=== PATIENT | male | born 1975 | race African-American/Black ===

== ENCOUNTER 2016-04-21 11:24 | Emergency (ER) | payer OTHER ==
[2016-04-21 11:42] VITALS: RESP 18
--- NOTE | 2016-04-21 12:17 | ED ---
General Adult HPI - General Chief complaint: Extremity Injury, Upper Stated complaint: rt shoulder injury - home Time Seen by Provider: 04/21/16 11:45 Source: patient, RN notes reviewed Mode of arrival: ambulatory Limitations: no limitations - History of Present Illness Initial comments: Patient 41-year-old male who presents emergency room today with chief complaint of injury to the right shoulder times one day. Does not that yesterday he was helping a friend move an air conditioner. Denies any significant injury at that time states he felt that he pulled a little bit. States when he got home to do some work himself he was having a difficult time lifting the right shoulder without any pain. States tried to go to work today was having increased pain. States he was advised by his boss that he needed to have a work note be cleared to go back to work. Patient does admit the pain is worse with any abduction of the right shoulder or extension. Denies any other complaints or associated symptoms. Patient denies any recent fever, chills, shortness of breath, chest pain, back pain, abdominal pain, nausea or vomiting, numbness or tingling, dysuria or hematuria, constipation or diarrhea, headaches or visual changes, or any other complaints. - Related Data Home Medications Medication Instructions Recorded Confirmed Chlorthalidone [Hygroton] 25 mg PO DAILY 04/21/16 04/21/16 Ergocalciferol (Vitamin D2) 50,000 unit PO TU 04/21/16 04/21/16 [Vitamin D2] Ibuprofen [Motrin] 200 mg PO Q6HR PRN 04/21/16 04/21/16 QUEtiapine XR [SEROquel XR] 150 mg PO HS 04/21/16 04/21/16 Allergies Allergy/AdvReac Type Severity Reaction Status Date / Time No Known Allergies Allergy Verified 04/21/16 11:51 Review of Systems ROS Statement: Those systems with pertinent positive or pertinent negative responses have been documented in the HPI. ROS Other: All systems not noted in ROS Statement are negative. Past Medical History Past Medical History: Hypertension History of Any Multi-Drug Resistant Organisms: None Reported Past Surgical History: No Surgical Hx Reported Past Psychological History: Anxiety Smoking Status: Current every day smoker Past Alcohol Use History: Daily Past Drug Use History: None Reported General Exam - General Exam Comments Initial Comments: General: The patient is awake and alert, in no distress, and does not appear acutely ill. Neck: The neck is supple, there is no tenderness or JVD. Cardiovascular: There is a regular rate and rhythm. No murmur, rub or gallop is appreciated. Respiratory: Lungs are clear to auscultation, respirations are non-labored, breath sounds are equal. No wheezes, stridor, rales, or rhonchi. Musculoskeletal: Normal appearance of the right shoulder. Only tucked against the side. Sensations intact with pulses equal bilaterally 2+. Strength is 5/5 in all other areas. 4/5 in right shoulder against abduction due to pain. Neurological: A&O x 3. CN II-XII intact, There are no obvious motor or sensory deficits. Coordination appears grossly intact. Speech is normal. Skin: Skin is warm and dry and no rashes or lesions are noted. Psychiatric: Normal mood and affect. Limitations: no limitations Course Vital Signs 04/21/16 11:38 Temperature 98.5 F Pulse Rate 99 Respiratory 18 Rate Blood Pressure 131/77 O2 Sat by Pulse 96 Oximetry Medical Decision Making - Medical Decision Making Patient's x-ray reviewed shows no acute abnormalities. Results were discussed with the patient. He does admit that ibuprofen seems to be kicking in helping does have some range of motion with his right arm starting to feel little bit better. He is advised continue with anti-inflammatories advised to follow-up the family doctor or orthopedics if symptoms persist for further evaluation of the right shoulder. Advised to do no heavy lifting. Advised return for any other concerns. Disposition Clinical Impression: Shoulder strain Disposition: HOME SELF-CARE Condition: Good Instructions: Rotator Cuff Injury (ED) Additional Instructions: Please use medication as discussed. Please follow family doctor or orthopedics if symptoms persist over the next week. Please return to emergency room if the symptoms increase or worsen or for any other concerns. Referrals: Basilia Richmond MD [Primary Care Provider] - 1-2 days Viktor Ray DO [Doctor of Osteopathic Medicine] - 1-2 days Time of Disposition: 13:28
--- NOTE | 2016-04-21 12:43 | XR ---
EXAMINATION TYPE: XR shoulder complete RT DATE OF EXAM: 04/21/2016 12:35 PM CLINICAL HISTORY: Lifting injury yesterday with pain. TECHNIQUE: Three views of the right shoulder are obtained. COMPARISON: None. FINDINGS: There is no acute fracture/dislocation evident in the right shoulder. The acromioclavicul ar and glenohumeral joint spaces appear within normal limits. The visualized ribs are intact and unr emarkable. IMPRESSION: There is no acute fracture or dislocation in the right shoulder.
[2016-04-21 13:37] VITALS: BP 132/65; PULSE 71; TEMP 98.3
== END 2016-04-21 13:37 | disposition home or self-care (01) ==
LOC: EC 11:24
DX: S46.911A Strain of unspecified muscle, fascia and tendon at shoulder and upper arm level, right arm, initial encounter (principal); X58.XXXA Exposure to other specified factors, initial encounter; F17.200 Nicotine dependence, unspecified, uncomplicated; I10 Essential (primary) hypertension; Z79.899 Other long term (current) drug therapy
CPT/HCPCS: 99283

== ENCOUNTER 2019-10-30 18:56 | Emergency (ER) | payer OTHER ==
[2019-10-30 19:07] VITALS: BP 143/93; PULSE 87; RESP 18; TEMP 98.6
[2019-10-30] MEDS: LIDOCAINE 1% INJ 10MG/ML (20 ML MDV) SQ ONE ×2 (19:24→19:26)
[2019-10-30] MEDS ORDERED: CEPHALEXIN 500MG STARTER PACK 4 CAP BTL PO STA (19:50)
[2019-10-30] MEDS ORDERED: SULFAMETH-TMP DS STARTER PACK 2 TAB BTL PO STA (19:50)
--- NOTE | 2019-10-30 19:51 | ED ---
General Adult HPI - General Chief complaint: Skin/Abscess/Foreign Body Stated complaint: ingrown hair on leg Time Seen by Provider: 10/30/19 19:07 Source: patient, RN notes reviewed Mode of arrival: ambulatory Limitations: no limitations - History of Present Illness Initial comments: 44-year-old male with a past medical history of hypertension presents to the emergency room for a chief complaint of "hair bump." Patient reports he has had a red bump in his groin for the past 2 days. States this happens from time to time but usually goes away. Patient denies fevers. Denies any edema in the scrotum or testicles. Patient states it is tender. Patient did take a warm bath yesterday which softened it but has not had any active draining. Patient has no other complaints at this time including shortness of breath, chest pain, abdominal pain, nausea or vomiting, headache, or visual changes. - Related Data Home Medications Medication Instructions Recorded Confirmed Chlorthalidone [Hygroton] 25 mg PO DAILY 04/21/16 02/11/17 Atorvastatin [Lipitor] 40 mg PO DAILY 02/11/17 02/11/17 Ibuprofen [Motrin] 800 mg PO Q6H PRN 02/11/17 02/11/17 QUEtiapine FUMARATE [SEROquel] 300 mg PO HS 02/11/17 02/11/17 Previous Rx's Medication Instructions Recorded Hydrocortisone [Anusol-Hc] 1 applic RECTAL TID #1 gm 02/11/17 Cephalexin [Keflex] 500 mg PO Q6HR 10 Days #40 cap 10/30/19 Sulfamethox-Tmp 800-160Mg [Bactrim 1 tab PO Q12HR #20 tab 10/30/19 DS 800-160 mg] Allergies Allergy/AdvReac Type Severity Reaction Status Date / Time No Known Allergies Allergy Verified 10/30/19 19:06 Review of Systems ROS Statement: Those systems with pertinent positive or pertinent negative responses have been documented in the HPI. ROS Other: All systems not noted in ROS Statement are negative. Past Medical History Past Medical History: Hypertension History of Any Multi-Drug Resistant Organisms: None Reported Past Surgical History: No Surgical Hx Reported Past Psychological History: Anxiety Past Alcohol Use History: Daily Past Drug Use History: None Reported General Exam Limitations: no limitations General appearance: alert, in no apparent distress Head exam: Present: atraumatic, normocephalic, normal inspection Eye exam: Present: normal appearance, PERRL, EOMI. Absent: scleral icterus, conjunctival injection, periorbital swelling ENT exam: Present: normal exam, mucous membranes moist Neck exam: Present: normal inspection, full ROM. Absent: tenderness, meningismus, lymphadenopathy Respiratory exam: Present: normal lung sounds bilaterally. Absent: respiratory distress, wheezes, rales, rhonchi, stridor Cardiovascular Exam: Present: regular rate, normal rhythm, normal heart sounds. Absent: systolic murmur, diastolic murmur, rubs, gallop, clicks GI/Abdominal exam: Present: soft, normal bowel sounds. Absent: distended, tenderness, guarding, rebound, rigid exam: Absent: scrotal swelling Extremities exam: Present: other (Patient has abscess noted to the left inner upper thigh. Does not involve the perineum. Abscess is about 3 cm x 3 cm in size.) Course Vital Signs 10/30/19 19:04 Temperature 98.6 F Pulse Rate 87 Respiratory 18 Rate Blood Pressure 143/93 O2 Sat by Pulse 98 Oximetry Procedures - Incision & Drainage Consent Obtained: verbal consent Indication: Abscess Site: lower extremity Size (cm): 3 Anesthetic Used: lidocaine 1% Amount (mLs): 3 I&D Cleaning Method: Chloroprep Sterile Field Used?: Yes Scalpel Used: #11 I&D Drainage Obtained: Pus, Blood Patient Tolerated Procedure: well, no complications Medical Decision Making - Medical Decision Making HPI physical exam as documented. Incision and drainage performed with purulent material expelled. Patient started on antibiotics. Discussed return parameters including any redness spreading to the scrotum. Discussed returning for fevers or any other worsening symptoms. Patient will follow-up with his doctor. He is aware that symptoms should start to improve within 48 hours and if not he needs to be reevaluated. Disposition Clinical Impression: Abscess Disposition: HOME SELF-CARE Condition: Good Instructions (If sedation given, give patient instructions): Abscess (ED), Warm Compress or Soak (ED) Additional Instructions: Please apply warm compresses. Take antibiotics as directed. If symptoms are not improving within 48 hours he needs to return to the emergency room. You having worsening symptoms such as fevers or infection is spreading to scrotum return immediately to the emergency room. Prescriptions: Sulfamethox-Tmp 800-160Mg [Bactrim DS 800-160 mg] 1 tab PO Q12HR #20 tab Cephalexin [Keflex] 500 mg PO Q6HR 10 Days #40 cap Is patient prescribed a controlled substance at d/c from ED?: No Referrals: Dung Torres MD [Primary Care Provider] - 1-2 days Time of Disposition: 19:48
== END 2019-10-30 20:01 | disposition home or self-care (01) ==
LOC: EC 18:56
DX: L02.416 Cutaneous abscess of left lower limb (principal); I10 Essential (primary) hypertension; F41.9 Anxiety disorder, unspecified; Z79.899 Other long term (current) drug therapy
CPT/HCPCS: 99283; 10060; J2001

== ENCOUNTER 2021-08-19 12:21 | Emergency (ER) | payer OTHER ==
[2021-08-19 13:03] VITALS: BP 123/77; PULSE 83; RESP 20; TEMP 98.3
--- NOTE | 2021-08-19 13:39 | XR ---
EXAMINATION TYPE: XR chest 2V DATE OF EXAM: 08/19/2021 COMPARISON: NONE TECHNIQUE: PA and lateral views submitted. HISTORY: Pain FINDINGS: The lungs are clear and there is no pneumothorax, pleural effusion, or focal pneumonia. Heart size normal. Hyperinflation. Hypertrophic and degenerative changes spine. Biapical pleural thickening. No overt failure. IMPRESSION: 1. No acute process.
[2021-08-19] MEDS ORDERED: LIDOCAINE 5% PATCH TOPICAL STA (17:52)
[2021-08-19] MEDS ORDERED: IBUPROFEN 800 MG TAB PO STA (17:52)
--- NOTE | 2021-08-19 18:08 | ED ---
General Adult HPI - General Chief complaint: Chest Pain Stated complaint: R side pain Time Seen by Provider: 08/19/21 17:41 Source: patient, RN notes reviewed, old records reviewed Mode of arrival: ambulatory Limitations: no limitations - History of Present Illness Initial comments: Patient is a 46-year-old male with past medical history remarkable for hypertension presents emergency Department complaining of acute onset of right- sided rib pain. Patient is complaining of pain between his right to most inferior ribs. Started yesterday when he bent over to spit into the sink after brushing his teeth. States it was sudden onset at this site. States it is provoked by moving or twisting his trunk or torso. Improves when resting. Once reevaluated. Denies any shortness of breath, chest pain otherwise. Denies any nausea, vomiting, abdominal pain, urinary complaints. No other acute complaints at this time. His pinpoint pain. Does not radiate. Feel sharp in nature. - Related Data Home Medications Medication Instructions Recorded Confirmed Chlorthalidone [Hygroton] 25 mg PO DAILY 04/21/16 02/11/17 Atorvastatin [Lipitor] 40 mg PO DAILY 02/11/17 02/11/17 Ibuprofen [Motrin] 800 mg PO Q6H PRN 02/11/17 02/11/17 QUEtiapine FUMARATE [SEROquel] 300 mg PO HS 02/11/17 02/11/17 Previous Rx's Medication Instructions Recorded Hydrocortisone [Anusol-Hc] 1 applic RECTAL TID #1 gm 02/11/17 Cephalexin [Keflex] 500 mg PO Q6HR 10 Days #40 cap 10/30/19 Sulfamethox-Tmp 800-160Mg [Bactrim 1 tab PO Q12HR #20 tab 10/30/19 DS 800-160 mg] Lidocaine 5% Patch [Lidoderm 5% 1 patch TOPICAL DAILY PRN 7 Days 08/19/21 Patch] #7 patch methocarbamoL [Robaxin] 500 mg PO BID PRN 7 Days #14 tab 08/19/21 Allergies Allergy/AdvReac Type Severity Reaction Status Date / Time No Known Allergies Allergy Verified 08/19/21 13:03 Review of Systems ROS Statement: Those systems with pertinent positive or pertinent negative responses have been documented in the HPI. Review of Systems: CONST: Denies fever EYES: Denies blurry vision ENT: Denies nasal congestion C/V: Denies Chest pain RESP: Denies shortness of breath GI: Denies abdominal pain : Denies dysuria SKIN: Denies rash. MSK: Endorses right-sided rib pain. NEURO: Denies headache ROS Other: All systems not noted in ROS Statement are negative. Past Medical History Past Medical History: Hypertension History of Any Multi-Drug Resistant Organisms: None Reported Past Surgical History: No Surgical Hx Reported Past Psychological History: Anxiety Smoking Status: Current every day smoker Past Alcohol Use History: Daily Past Drug Use History: None Reported General Exam - General Exam Comments Initial Comments: General: Appears in no acute distress. HEAD: Normal with no signs of head trauma. EYES: PERRLA, EOMI, conjunctiva normal, no discharge. ENT: Hearing grossly intact, normal oropharynx. RESPIRATORY: Clear breath sounds bilaterally. No wheezes, rales, or rhonchi. No increased work of breathing. No hypoxia. C/V: Regular rate and rhythm. S1 and S2 auscultated, no edema, peripheral pulses 2+ and intact throughout ABD: Abd is soft, nontender, nondistended EXT: Normal range of motion, no obvious deformity. Patient has right-sided midaxillary line 11th and 12th tenderness to palpation is pinpoint, especially the intermuscular space. No midline spinal tenderness to palpation. SKIN: No rashes or lesions observed on exposed skin. NEURO: Alert and oriented 4. No focal sensory or strength deficits. Limitations: no limitations Course Vital Signs 08/19/21 13:01 Temperature 98.3 F Pulse Rate 83 Respiratory 20 Rate Blood Pressure 123/77 O2 Sat by Pulse 96 Oximetry Medical Decision Making - Medical Decision Making Based on the patient's presentation and physical exam, I do believe he is likely experiencing a muscle strain. Chest x-ray was obtained on the patient waiting in triage which showed no signs of acute cardiopulmonary process. I discussed with him I would like to obtain a screening EKG due to his obesity, age. He was in agreement with this plan. I do not believe that further laboratory studies or imaging are required at this time. He will be given a lidocaine patches as well as ibuprofen for analgesia. Recommended [id number] analgesia as well as lidocaine patches and muscle relaxers at home which he will receive a prescription for. He was in agreement this plan. We'll provide him with a work note as well. EKG shows no signs of ischemia. I will provide the patient with a prescription for Robaxin, lidocaine patch. I instructed the patient to follow up with their PCP in the next 3 days. I explained that the patient should return to the emergency department if they experience any worsening symptoms. Strict return precautions were discussed with the patient. The patient expressed understanding of these instructions. I answered all questions that the patient had. The patient was discharged home in good condition with their prescriptions and follow up information. - EKG Data -: EKG Interpreted by Me EKG Comments: 12-lead Electrocardiogram Interpretation Note EKG was reviewed and interpreted by myself. 12-lead ECG performed at 1805 is interpreted by me as revealing normal sinus rhythm at a rate of 77 beats per minute. Left axis deviation. VA interval is 167 ms, QRS duration is 105 ms, QTc is 421 ms.. There were no ST or T wave abnormalities to suggest myocardial ischemia or injury. R wave progression across the precordium was satisfactory. By my interpretation this EKG is non-diagnostic for acute ischemia. Disposition Clinical Impression: Muscle strain Disposition: HOME SELF-CARE Condition: Good Instructions (If sedation given, give patient instructions): Muscle Strain (ED) Prescriptions: Lidocaine 5% Patch [Lidoderm 5% Patch] 1 patch TOPICAL DAILY PRN 7 Days #7 patch PRN Reason: Pain methocarbamoL [Robaxin] 500 mg PO BID PRN 7 Days #14 tab PRN Reason: Pain Is patient prescribed a controlled substance at d/c from ED?: No Referrals: Dung Torres MD [Primary Care Provider] - 1-2 days Time of Disposition: 18:25
== END 2021-08-19 18:35 | disposition home or self-care (01) ==
LOC: EC 12:21
DX: S29.011A Strain of muscle and tendon of front wall of thorax, initial encounter (principal); I10 Essential (primary) hypertension; F17.200 Nicotine dependence, unspecified, uncomplicated; Z79.899 Other long term (current) drug therapy; X58.XXXA Exposure to other specified factors, initial encounter
CPT/HCPCS: 71046; 93005; 99285

== ENCOUNTER 2021-12-02 00:07 | Emergency (ER) | payer OTHER ==
[2021-12-02 00:18] VITALS: RESP 15; TEMP 98.2
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
[2021-12-02] MEDS ORDERED: HYDROcodone/APAP 5-325MG 1 EACH TAB PO STA (01:16)
[2021-12-02] MEDS ORDERED: KETOROLAC 15 MG/ML 1 ML VIAL IM STA (01:16)
--- NOTE | 2021-12-02 01:25 | XR ---
EXAMINATION TYPE: XR ankle complete LT DATE OF EXAM: 12/01/2021 COMPARISON: 05/01/2015 HISTORY: Pain TECHNIQUE: 3 views FINDINGS: There is oblique fracture distal fibula. There is transverse fracture of the medial malleol us. Ankle mortise is slightly widened. No dislocation. The talus is intact. There is mild soft tissue swelling around the ankle. IMPRESSION: There is bimalleolar fracture of the ankle. There is approximate 4 mm lateral displacemen t of the talus.
[2021-12-02 03:31] VITALS: BP 132/81; PULSE 71
== END 2021-12-02 03:56 | disposition home or self-care (01) ==
LOC: EC 00:07
DX: S82.842A Displaced bimalleolar fracture of left lower leg, initial encounter for closed fracture (principal); F17.200 Nicotine dependence, unspecified, uncomplicated; I10 Essential (primary) hypertension; Z79.899 Other long term (current) drug therapy; X50.1XXA Overexertion from prolonged static or awkward postures, initial encounter; Y92.89 Other specified places as the place of occurrence of the external cause
CPT/HCPCS: 73610; 99284; 27810; 96372; J1885

== ENCOUNTER 2021-12-10 11:10 | Day surgery (SDC) | payer OTHER ==
[2021-12-09 14:38] VITALS: BMI 39.5
[~2021-12-10 11:10] MED LIST: DEXAMETHASONE SOD PHOSPHATE 4 MG/ML 1 ML VIAL IV ONE; LACTATED RINGERS 1,000 ML IV SCH; MIDAZOLAM 2 MG/2 ML VIAL IV PRN; ONDANSETRON 4 MG/2 ML VIAL IVP ONE; SCOPOLAMINE 1 MG/72 HR PATCH TRANSDERM ONE
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
[2021-12-10] MEDS ORDERED: MIDAZOLAM 2 MG/2 ML VIAL IVP ONE (11:39)
[2021-12-10] MEDS ORDERED: fentaNYL (PF) 50 MCG/ML 2 ML AMP IVP ONE (11:40)
[2021-12-10] MEDS ORDERED: SODIUM CHLORIDE 0.9% (PF) 10 ML VIAL ONE (11:50)
[2021-12-10] MEDS ORDERED: SUCCINYLCHOLINE CHLORIDE 200 MG/10 ML VIAL IV ONE (11:50)
[2021-12-10] MEDS ORDERED: GLYCOPYRROLATE 0.2 MG/ML 2 ML VIAL ONE (11:50)
[2021-12-10] MEDS ORDERED: NEOSTIGMINE 1 MG/ML 10 ML VIAL ONE (11:50)
[2021-12-10] MEDS ORDERED: ROPIVACAINE 5 MG/ML 30 ML VIAL ONE (11:50)
[2021-12-10] MEDS ORDERED: LIDOCAINE 2% INJ 20 MG/ML (2 ML VIAL) ONE (11:50)
[2021-12-10] MEDS ORDERED: PROPOFOL 10 MG/ML 20 ML VIAL IV ONE (11:50)
[2021-12-10] MEDS ORDERED: fentaNYL (PF) 50 MCG/ML 2 ML AMP ONE (11:50)
[2021-12-10] MEDS ORDERED: ROCURONIUM 10 MG/ML (5 ML VIAL) IV ONE (11:50)
[2021-12-10 11:53] LABS: HCT 47.8 % (39.0-53.0); HGB 16.5 gm/dL (13.0-17.5); MCHC 34.4 g/dL (31.0-37.0); Mean Platelet Volume 7.3; Platelet Count 277 k/uL (150-450); RBC 5.32 m/uL (4.30-5.90); WBC 11.2 k/uL (3.8-10.6)
[2021-12-10 12:16] LABS: African American GFR (CKD) >90 (>60 ml/min/1.73 sqM); Anion Gap 13 mmol/L; Blood Urea Nitrogen 12 mg/dL (9-20); Calcium 9.9 mg/dL (8.4-10.2); Carbon Dioxide 25 mmol/L (22-30); Chloride 103 mmol/L (98-107); Glucose 115 mg/dL (74-99); Non-African American GFR(CKD) 84 (>60 ml/min/1.73 sqM); Potassium 3.9 mmol/L (3.5-5.1); Sodium 141 mmol/L (137-145)
[2021-12-10] MEDS ORDERED: LACTATED RINGERS 1,000 ML IV ONE (13:08)
[2021-12-10 13:37] VITALS: TEMP 97.8
[2021-12-10] MEDS: HYDROmorphone 0.5 MG/0.5 ML SYRINGE IVP PRN ×2 (13:57→14:17)
--- NOTE | 2021-12-10 14:00 | FL ---
Fluoroscopy HISTORY: Pain 30 seconds fluoroscopy time supplied to the referring clinician. 5 intraoperative C-arm images docum ent the procedure. See dictated report from orthopedic surgery.
[2021-12-10 15:51] VITALS: BP 117/64; PULSE 89; RESP 18
--- NOTE | 2021-12-10 17:08 | P.ANPRN ---
Procedure Note - Anesthesia - Nerve Block Performed Left Popliteal Single Time Out Performed: Yes (1138) Date of Procedure: 12/10/21 Procedure Start Time: 11:39 Procedure Stop Time: 11:44 Location of Patient: PreOp Indication: Acute Post-Operative Pain, Requested by Surgeon Specifically requested for management of pain by DrParis: Boris Motley Sedation Type: Sedate with meaningful contact maintained Preparation: Sterile Prep Position: Supine Catheter: None Needle Types: Pajunk Needle Gauge: 21 Ultrasound used to visualize needle placement: Yes Ultrasound used to observe medication spread: Yes Injectate: 0.5% Ropivacaine (see comment for volume) (15cc + 10 cc nacl pf) Blood Aspirated: No Pain Paresthesia on Injection Noted: No Resistance on Injection: Normal Image Stored and Saved: Yes Events: Uneventful and Well Tolerated
--- NOTE | 2021-12-10 17:09 | P.ANPRN ---
Procedure Note - Anesthesia - Nerve Block Performed Left Adductor Canal Single Time Out Performed: Yes (1138) Date of Procedure: 12/10/21 Procedure Start Time: 11:45 Procedure Stop Time: 11:48 Location of Patient: PreOp Indication: Acute Post-Operative Pain, Requested by Surgeon Specifically requested for management of pain by DrParis: Boris Motley Sedation Type: Sedate with meaningful contact maintained Preparation: Sterile Prep Position: Supine Catheter: None Needle Types: Pajunk Needle Gauge: 21 Ultrasound used to visualize needle placement: Yes Ultrasound used to observe medication spread: Yes Injectate: 0.5% Ropivacaine (see comment for volume) (15cc +10cc nacl pf) Blood Aspirated: No Pain Paresthesia on Injection Noted: No Resistance on Injection: Normal Image Stored and Saved: Yes Events: Uneventful and Well Tolerated
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
== END 2021-12-10 16:08 | disposition home or self-care (01) ==
LOC: OR 11:10
PROVIDERS: ATTEND Orthopaedic Surgery
DX: S82.842A Displaced bimalleolar fracture of left lower leg, initial encounter for closed fracture (principal); G89.18 Other acute postprocedural pain; I10 Essential (primary) hypertension; G47.30 Sleep apnea, unspecified; F17.210 Nicotine dependence, cigarettes, uncomplicated; X50.1XXA Overexertion from prolonged static or awkward postures, initial encounter; Z79.899 Other long term (current) drug therapy
CPT/HCPCS: 64447; 64445; 76942; 80048; 85027; 73610; 27814; C1713; J2250; J0330; J1100; J2710; J0690; J2405; J3010; J2795; J2704; J1170; J2001

== ENCOUNTER 2022-01-18 18:04 | Emergency (ER) | payer OTHER ==
[2022-01-18 18:13] VITALS: BP 138/88; PULSE 87; RESP 18; TEMP 98.1
[2022-01-18] MEDS ORDERED: MORPHINE SULFATE 4 MG/ML SYRINGE IM STA (18:54)
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
== END 2022-01-18 20:14 | disposition home or self-care (01) ==
LOC: EC 18:04
DX: T81.31XA Disruption of external operation (surgical) wound, not elsewhere classified, initial encounter (principal); I10 Essential (primary) hypertension; G47.30 Sleep apnea, unspecified; F17.200 Nicotine dependence, unspecified, uncomplicated
CPT/HCPCS: 87070; 87205; 87077; 87186; 99283; 96372; J2270

== ENCOUNTER 2022-01-24 14:45 | Emergency (ER) | payer OTHER ==
[2022-01-24 14:51] VITALS: BP 127/69; PULSE 98; RESP 16; TEMP 98.7
--- NOTE | 2022-01-24 17:33 | ED ---
Skin/Abscess/FB HPI - General Chief complaint: Skin/Abscess/Foreign Body Stated complaint: Leg Infection Time Seen by Provider: 01/24/22 16:08 Source: patient Mode of arrival: ambulatory Limitations: no limitations - History of Present Illness Initial comments: This 46-year-old male presents with complaint of possible infection to his left ankle. He states that he fractured his ankle in early November. He had surgery about a week later. He was placed in a cast and states that this seemed to rub up against his ankle and he developed an infection. He was seen in the emergency department about a week ago and was placed on Bactrim. The culture apparently came back in the ER called him 3 days ago. This culture came back positive for pseudomonas. He is placed on Levaquin which she's been taking over the last 3 days. They told him to come to the emergency department on Monday but he states that he cannot as he had a court case when he came today instead. He denies any fevers or chills. He states that the pain has somewhat improved since being on the antibiotic. He still states that he has significant pain at night and is strongly requesting additional G[place] as he ran out. He has an appointment with wound care tomorrow as well as his orthopedic doctor the next day. No other complaints or modifying factors. - Related Data Home Medications Medication Instructions Recorded Confirmed Chlorthalidone [Hygroton] 25 mg PO DAILY 04/21/16 01/24/22 Atorvastatin [Lipitor] 40 mg PO DAILY 01/24/22 01/24/22 Ergocalciferol [Vitamin D2 (1250 1,250 mcg PO MO 01/24/22 01/24/22 Mcg = 39163 Iu)] Levofloxacin [Levaquin] 750 mg PO DAILY 01/24/22 01/24/22 Sildenafil [Revatio] 20 mg PO DAILY PRN 01/24/22 01/24/22 amLODIPine [Norvasc] 10 mg PO DAILY 01/24/22 01/24/22 Previous Rx's Medication Instructions Recorded HYDROcodone/APAP 5-325MG [[place] 1 tab PO Q6HR PRN 3 Days #12 tab 01/24/22 5-325] Allergies Allergy/AdvReac Type Severity Reaction Status Date / Time No Known Allergies Allergy Verified 01/24/22 17:49 Review of Systems ROS Statement: Those systems with pertinent positive or pertinent negative responses have been documented in the HPI. ROS Other: All systems not noted in ROS Statement are negative. Past Medical History Past Medical History: Hypertension, Sleep Apnea/CPAP/BIPAP Additional Past Medical History / Comment(s): No CPAP use. History of Any Multi-Drug Resistant Organisms: None Reported Past Surgical History: Orthopedic Surgery Additional Past Surgical History / Comment(s): left ankle repair Past Anesthesia/Blood Transfusion Reactions: No Reported Reaction Past Psychological History: No Psychological Hx Reported Smoking Status: Current every day smoker Past Alcohol Use History: Occasional Past Drug Use History: None Reported - Past Family History Mother Family Medical History: No Reported History General Exam - General Exam Comments Initial Comments: GENERAL: The patient is well nourished and well hydrated. VITAL SIGNS: Heart rate, blood pressure, respiratory rate reviewed as recorded in nurse's notes. EYES: Pupils are round and reactive. Extraocular movements are intact. No conjunctival / lid redness or swelling. ENT: No external evidence of injury, swelling, or ecchymosis. Airway is patent. Throat is clear. NECK: Nontender. No swelling or evidence of injury. No subcutaneous emphysema. Trachea is midline. No thyroid mass. HEART: Regular rate and rhythm. Good peripheral pulses. LUNGS/CHEST: Breath sounds clear and equal bilaterally. No rales, rhonchi, or wheezes. No ecchymosis, subcutaneous emphysema, or tenderness. ABDOMEN: Abdomen soft without tenderness. No palpable masses or organomegaly. No peritoneal signs. No abdominal wall swelling or ecchymosis. EXTREMITIES: No extremity tenderness. Normal muscle tone and function. No thoracolumbar tenderness. NEUROLOGIC: Sensation is grossly intact. Cranial nerve exam reveals face is symmetrical, tongue is midline, speech is clear. SKIN: No abrasions or ecchymosis is noted. No induration or masses noted. There is a small wound approximately 2 cm on the lateral aspect of the left ankle. This has some slight greenish drainage. There isassociated erythema in the surrounding borders. There is no fluctuance or evidence of abscess. There is no significant tenderness. PSYCHIATRIC: Alert and oriented. Appropriate behavior and judgment. Limitations: no limitations Course Vital Signs 01/24/22 14:46 Temperature 98.7 F Pulse Rate 98 Respiratory 16 Rate Blood Pressure 127/69 O2 Sat by Pulse 98 Oximetry Medical Decision Making - Medical Decision Making The patient was seen and examined. Cultures were reviewed from this past week and do show that Pseudomonas route. This is susceptible to multiple medications including fluoroquinolones. It appears as though he is currently on Levaquin which should work fine. Case is discussed with orthopedic PA and they are agreeable with current disposition. He is to continue with the Levaquin, follow up with wound care tomorrow and follow-up with orthopedics on Monday. Pain medications are prescribed for short course of Garrison. Return parameters are discussed. Patient is agreeable with this plan and leaves in no distress. Disposition Clinical Impression: Postoperative cellulitis of surgical wound Disposition: HOME SELF-CARE Condition: Good Instructions (If sedation given, give patient instructions): Chronic Wound Care (ED) Additional Instructions: Please follow up with wound care tomorrow as scheduled. Please continue with your current antibiotics. Prescriptions: HYDROcodone/APAP 5-325MG [[place] 5-325] 1 tab PO Q6HR PRN 3 Days #12 tab PRN Reason: Pain Is patient prescribed a controlled substance at d/c from ED?: Yes If prescribed controlled substance>3 days was MAPS reviewed?: Prescribed <3 Days Referrals: Dung Torres MD [Primary Care Provider] - 1-2 days Boris Motley DO [Doctor of Osteopathic Medicine] - 01/26/22 Time of Disposition: 17:32
== END 2022-01-24 17:53 | disposition home or self-care (01) ==
LOC: EC 14:45
DX: T81.49XA Infection following a procedure, other surgical site, initial encounter (principal); F17.200 Nicotine dependence, unspecified, uncomplicated; I10 Essential (primary) hypertension; G47.30 Sleep apnea, unspecified
CPT/HCPCS: 99282

== ENCOUNTER 2022-09-26 10:09 | Day surgery (SDC) | payer OTHER ==
[2022-09-20 13:46] VITALS: BMI 40.7
[~2022-09-26 10:09] MED LIST changes: -DEXAMETHASONE SOD PHOSPHATE 4 MG/ML 1 ML VIAL IV ONE; +LIDOCAINE 1% (10MG/ML) FOR IV START INTRADERMA PRN; -MIDAZOLAM 2 MG/2 ML VIAL IV PRN; -ONDANSETRON 4 MG/2 ML VIAL IVP ONE; -SCOPOLAMINE 1 MG/72 HR PATCH TRANSDERM ONE
[2022-09-26 10:30] VITALS: TEMP 97.9
[2022-09-26] MEDS ORDERED: MIDAZOLAM 2 MG/2 ML VIAL ONE (11:03)
[2022-09-26] MEDS ORDERED: PROPOFOL 10 MG/ML 20 ML VIAL IV ONE (11:03)
[2022-09-26] MEDS ORDERED: fentaNYL (PF) 50 MCG/ML 2 ML AMP ONE (11:03)
[2022-09-26] MEDS ORDERED: LIDOCAINE 2% INJ 20 MG/ML (2 ML VIAL) ONE (11:03)
--- NOTE | 2022-09-26 11:36 | P.PCN ---
Date of Procedure: 09/26/22 Preoperative Diagnosis: Colon cancer screening, family history of colon cancer Postoperative Diagnosis: Colon cancer screening, family history of colon cancer, colon polyps Procedure(s) Performed: Colonoscopy with polypectomy Anesthesia: MAC Surgeon: Radha Lao Condition: stable Disposition: PACU Description of Procedure: Patient presents for first colon cancer screening. There is a family history of cancer in his father. A colonoscope is passed per rectum to the cecum. He had a good prep. There was some liquid material which is easily aspirated. Multiple polyps are noted. 5 mm one in the distal ascending colon biopsied and destroyed. Biopsy forceps. A similar polyp in the proximal transverse colon biopsied and destroyed with hot biopsy forceps. At the splenic flexure there are 2 polyps removed with hot biopsy forceps. Another 7 or 8 mm 1 in the rectum biopsied and destroyed with hot biopsy forceps. Otherwise there is no evidence of mass lesion, ulcer, stricture or other mucosal abnormality. No significant hemorrhoidal disease on retroflexion of the scope. He tolerated the procedure without difficulty and was taken recovery room in satisfactory condition. We will call with the report of the polypectomy but likely repeat colonoscopy in 3 years Plan - Discharge Summary Discharge Rx Participant: Yes New Discharge Prescriptions: No Action Chlorthalidone [Hygroton] 25 mg PO DAILY HYDROcodone/APAP 5-325MG [[place] 5-325] 1 tab PO Q6HR PRN 3 Days #12 tab PRN Reason: Pain Ergocalciferol [Vitamin D2 (1250 Mcg = 41458 Iu)] 1,250 mcg PO MO amLODIPine [Norvasc] 10 mg PO DAILY Cetirizine HCl [Zyrtec] 10 mg PO DAILY Montelukast [Singulair] 10 mg PO DAILY Budesonide/Formoterol Fumarate [Symbicort 160-4.5 Mcg Inhaler] 1 puff INHALATION BID Fluticasone Nasal [place] [Flonase Nasal [place]] 1 dose PO DAILY Discharge Medication List Chlorthalidone [Hygroton] 25 mg PO DAILY 04/21/16 [History] Ergocalciferol [Vitamin D2 (1250 Mcg = 46439 Iu)] 1,250 mcg PO MO 01/24/22 [History] HYDROcodone/APAP 5-325MG [[place] 5-325] 1 tab PO Q6HR PRN 3 Days #12 tab 01/24/22 [Rx] amLODIPine [Norvasc] 10 mg PO DAILY 01/24/22 [History] Budesonide/Formoterol Fumarate [Symbicort 160-4.5 Mcg Inhaler] 1 puff INHALATION BID 09/20/22 [History] Cetirizine HCl [Zyrtec] 10 mg PO DAILY 09/20/22 [History] Fluticasone Nasal [place] [Flonase Nasal [place]] 1 dose PO DAILY 09/20/22 [History] Montelukast [Singulair] 10 mg PO DAILY 09/20/22 [History] Discharge Disposition: HOME SELF-CARE
[2022-09-26 12:02] VITALS: BP 114/71; PULSE 69; RESP 16
== END 2022-09-26 12:19 | disposition home or self-care (01) ==
LOC: ORWHC2ENDO 10:09
PROVIDERS: ATTEND Surgery
DX: Z12.11 Encounter for screening for malignant neoplasm of colon (principal); D12.2 Benign neoplasm of ascending colon; D12.3 Benign neoplasm of transverse colon; J44.9 Chronic obstructive pulmonary disease, unspecified; I10 Essential (primary) hypertension; Z80.0 Family history of malignant neoplasm of digestive organs; G47.30 Sleep apnea, unspecified; F17.210 Nicotine dependence, cigarettes, uncomplicated; Z86.010 Personal history of colon polyps; Z79.899 Other long term (current) drug therapy
CPT/HCPCS: 88305; 45384; J2250; J3010; J2704; J2001

== ENCOUNTER → 2024-01-08 | Outpatient (CLI) | payer OTHER ==
[2024-01-08 18:10] LABS: HCT 49.1 % (39.6-50.0); HGB 16.4 g/dL (13.0-17.0); MCH 30.3 pg (27.0-32.0); MCHC 33.4 g/dL (32.0-37.0); MCV 90.8 FL (80.0-97.0); Mean Platelet Volume 9.6 FL (9.5-12.2); NRBC Per 100 WBC 0 X 10*3/uL (0.00-0.01); Platelet Count 301 X 10*3/uL (140-440); RBC 5.41 X 10*6/uL (4.40-5.60); RDW 16.2 % (11.5-14.5)
[2024-01-08 18:11] LABS: Basophils # (A) 0.12 X 10*3/uL (0.00-0.10); Eosinophils # (A) 0.04 X 10*3/uL (0.04-0.35); Eosinophils % (A) 0.3 %; Lymphocytes # (A) 4.56 X 10*3/uL (0.90-5.00); Lymphocytes % (A) 36.5 %; Monocytes # (A) 1.21 X 10*3/uL (0.20-1.00); Monocytes % (A) 9.7 %; Neutrophils # (A) 6.52 X 10*3/uL (1.80-7.70); Neutrophils % (A) 52.1 %
[2024-01-08 18:23] LABS: BUN/Creat Ratio 14.18 Ratio (12.00-20.00); Blood Urea Nitrogen 15.6 mg/dL (9.0-27.0); Chloride 107 mmol/L (96-109); Glucose 147 mg/dL (70-110); Potassium 3.7 mmol/L (3.5-5.5); Sodium 140 mmol/L (135-145)
[2024-01-08 18:24] LABS: Calcium 9.1 mg/dL (8.7-10.3); Carbon Dioxide 21.6 mmol/L (21.6-31.8)
[2024-01-08 19:04] LABS: Appearance,Urine Clear (Clear); Bilirubin,Urine Negative (Negative); Blood,Urine Negative (Negative); Color,Urine Yellow (Yellow); Ketones,Urine Negative (Negative); Nitrite,Urine Negative (Negative); Specific Gravity,Urine 1.024 (1.001-1.030)
[2024-01-08 19:12] LABS: Bacteria,Urine None Seen (None Seen)
== END | disposition home or self-care (01) ==
LOC: LABWHC1 14:37
PROVIDERS: ATTEND Urology
DX: Z01.818 Encounter for other preprocedural examination (principal); N52.9 Male erectile dysfunction, unspecified
CPT/HCPCS: 36415; 80048; 81001; 85025; 87086

== ENCOUNTER 2024-01-10 09:12 | Day surgery (SDC) | payer OTHER ==
--- NOTE | 2024-01-09 11:24 | P.GSHP ---
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 He has failed pde 5 inhibitors. He is too heavy for a vacuum pump and refuses vasoactive injections He comes for a penile implant, IPP. The alternatives have been discussed. the risk and complications including infection, bleeding pain erosion, malfunction injury to adjacent organs, lack of satisfaction have been explained understood and accepted. He understands that if this fails he will be permanently impotent He comes for this procedure. - Constitutional Constitutional: Denies chills, Denies fever - EENT Eyes: denies blurred vision, denies pain Ears, nose, mouth and throat: Denies headache, Denies sore throat - Cardiovascular Cardiovascular: Denies chest pain, Denies shortness of breath - Respiratory Respiratory: Denies cough, Denies 7 - Gastrointestinal Gastrointestinal: Denies abdominal pain, Denies diarrhea, Denies nausea, Denies vomiting - Genitourinary (Female) Genitourinary: Denies dysuria, Denies hematuria - Genitourinary (Male) Genitourinary: Denies dysuria, Denies hematuria - Musculoskeletal Musculoskeletal: Denies myalgias - Integumentary Integumentary: Denies pruritus, Denies rash - Neurological Neurological: Denies numbness, Denies weakness - Psychiatric Psychiatric: Denies anxiety, Denies depression - Endocrine Endocrine: Denies fatigue, Denies weight change Past Medical History Past Medical History: COPD, Hypertension, Sleep Apnea/CPAP/BIPAP Additional Past Medical History / Comment(s): uses CPAP History of Any Multi-Drug Resistant Organisms: None Reported Past Surgical History: Orthopedic Surgery Additional Past Surgical History / Comment(s): left ankle repair 2021 Past Anesthesia/Blood Transfusion Reactions: No Reported Reaction Additional Past Anesthesia/Blood Transfusion Reaction / Comment(s): no blood transfusion, colonoscopy Past Psychological History: No Psychological Hx Reported Smoking Status: Current every day smoker Past Alcohol Use History: None Reported Past Drug Use History: None Reported - Past Family History Mother Family Medical History: Coronary Artery Disease (CAD) Additional Family Medical History / Comment(s): cardia stent Father Family Medical History: Cancer Additional Family Medical History / Comment(s): of colon cancer in his 60's Medications and Allergies Home Medications Medication Instructions Recorded Confirmed Type Chlorthalidone [Hygroton] 25 mg PO DAILY 04/21/16 01/05/24 History Ergocalciferol [Vitamin D2 (1250 1,250 mcg PO Q30D 01/24/22 01/05/24 History Mcg = 56589 Iu)] amLODIPine [Norvasc] 10 mg PO DAILY 01/24/22 01/05/24 History Budesonide/Formoterol Fumarate 1 puff INHALATION BID 09/20/22 01/05/24 History [Symbicort 160-4.5 Mcg Inhaler] Cetirizine HCl [Zyrtec] 10 mg PO DAILY 09/20/22 01/05/24 History Fluticasone Nasal [place] [Flonase 1 dose PO DAILY 09/20/22 01/05/24 History Nasal [place]] Albuterol Inhaler [Ventolin Hfa 1 - 2 puff INHALATION Q6H PRN 01/05/24 01/05/24 History Inhaler] HYDROcodone/APAP 7.5-325MG [[place] 1 tab PO Q6H PRN 01/05/24 01/05/24 History 7.5-325] Allergies Allergy/AdvReac Type Severity Reaction Status Date / Time No Known Allergies Allergy Verified 01/05/24 12:25 Surgical - Exam - General well developed, well nourished, no distress, obese - Eyes normal ocular movement, no icteric - ENT no hearing loss, no congestion - Neck no masses, trachea midline - Respiratory normal respiratory effort, clear to auscultation - Abdomen Abdomen: soft, non tender, no guarding, no rigid, no rebound - Integumentary no rash, no abnormal pigmentation - Neurologic no disoriented, no combative - Psychiatric oriented to time, oriented to person, oriented to place, speech is normal, memory intact Assessment and Plan Assessment: Impression: organic ipotence secondary to peripheral vascular disease. Plan: insertion of inflatable penile implant.
[2024-01-10 10:06] LABS: Glucose,Whole Blood 130 mg/dL (70-110)
[2024-01-10] MEDS: LACTATED RINGERS 1,000 ML IV SCH (10:07)
[2024-01-10] MEDS: IV FLUID CONTINUATION 1,000 ML IV ONE (10:08)
[2024-01-10] MEDS: ONDANSETRON 4 MG/2 ML VIAL IVP ONE (10:08)
[2024-01-10] MEDS: DEXAMETHASONE SOD PHOSPHATE 4 MG/ML 1 ML VIAL IV ONE (10:08)
[2024-01-10] MEDS: AMPICILLIN 1,000 MG in SODIUM CHLORIDE 0.9% 50 ML IVPB PRN (10:14)
[2024-01-10] MEDS ORDERED: LIDOCAINE 1% INJ 10MG/ML (20 ML MDV) ONE (10:41)
[2024-01-10] MEDS ORDERED: GLYCOPYRROLATE 0.2 MG/ML 2 ML VIAL ONE (10:41)
[2024-01-10] MEDS ORDERED: PROPOFOL 10 MG/ML 20 ML VIAL IV ONE (10:41)
[2024-01-10] MEDS ORDERED: ROCURONIUM 10 MG/ML (5 ML VIAL) IV ONE (10:41)
[2024-01-10] MEDS ORDERED: MIDAZOLAM 2 MG/2 ML VIAL ONE (10:41)
[2024-01-10] MEDS ORDERED: KETAMINE HCL IN 0.9 % NACL 50 MG/5 ML SYRINGE ONE (10:41)
[2024-01-10] MEDS ORDERED: KETOROLAC 15 MG/ML 1 ML VIAL ONE (10:41)
[2024-01-10] MEDS ORDERED: ESMOLOL 100 MG/10 ML VIAL ONE (10:41)
[2024-01-10] MEDS ORDERED: NEOSTIGMINE 1 MG/ML 10 ML VIAL ONE (10:41)
[2024-01-10] MEDS ORDERED: fentaNYL (PF) 50 MCG/ML 2 ML AMP ONE (10:41)
[2024-01-10] MEDS ORDERED: SUCCINYLCHOLINE CHLORIDE 200 MG/10 ML VIAL IV ONE (10:41)
[2024-01-10] MEDS: GENTAMICIN 140 MG in SODIUM CHLORIDE 0.9% 100 ML IVPB PRN (10:46)
[2024-01-10] MEDS: GENTAMICIN 80 MG in SODIUM CHLORIDE 0.9% 200 ML IRRIGATION ONE (11:04)
--- NOTE | 2024-01-10 12:16 | P.OP ---
Date of Procedure: 01/10/24 Preoperative Diagnosis: organic impotence secondary to vascular disease Postoperative Diagnosis: same Procedure(s) Performed: insertion of inflatable penile implant the 700 series CX 18 cm +3 cm rear-tip metal neutralizer, 100 mL balloon Anesthesia: SARATH Surgeon: Clint Monzon Estimated Blood Loss (ml): 50 Pathology: none sent Condition: stable Disposition: PACU Indications for Procedure: patient is 48. He has organic impotence secondary to vascular disease. He has failed PDE 5 inhibitors. He refuses a vacuum pump or vasoactive injections. He comes for a penile implant. He understands risks and complications including infection, bleeding, pain, lack of satisfaction, permanent impotence, injury to adjacent organs among others. He comes for this procedure. Description of Procedure: patient brought operating suite. Given a general endotracheal anesthesia. He is prepped and draped sterilely. A midline infrapubic incision is made to just above the pubis towards the rectus. I dissect down to the rectus fascia and I expose bilateral corpora. After adequate retraction the corpora are cleaned and 3-0 PDS stitches are placed as stay stitches in each corpora. Corporotomies were performed. The corpora I then dilated with Metzenbaum scissors and Hegar dilators 9-13 proximally and distally bilaterally. I measured the length of the corpora at 10 cm distal and 11 cm proximal bilaterally. I use an 18-Pashto centimeter implant with 3 cm rear-tip extenders. Using Beau needles both implants are inserted into the corpora inflated without buckling. Corporotomies are closed with 3-0 PDS. The balloon is placed behind the rectus fascia. A pr evious incision the rectus fascia is made in the prevesical space is developed. I bring the tubing out through the external inguinal ring. The rectus fascias closed with running 0 PDS. The balloon is inflated 100 mls. I then placed the pump in the right hemiscrotum. I connected the pump to the reservoir using straight connects. Then closed the wound with 3-0 chromic and 4-0 Vicryl. The catheter was passed into the bladder and there was a little bit of the blood the tip of the catheter. I therefore do cystoscopy to make sure there is no urethral injury using the flexible cystoscope I inspect the whole urethra and it is normal. The patient is awakened and returned recovery room good condition. Blood loss is 50 mL. He tolerated the procedure well and will be discharged home upon re covery.
[2024-01-10] MEDS: LACTATED RINGERS 1,000 ML IV ONE ×2 (12:19)
[2024-01-10] MEDS: ALBUTEROL NEBULIZED 2.5 MG/3 ML INHALATION STA (12:26)
[2024-01-10] MEDS: HYDROmorphone 0.5 MG/0.5 ML SYRINGE IVP PRN (12:31)
[2024-01-10 12:34] VITALS: RESP 16; TEMP 98
[2024-01-10 13:37] VITALS: BP 1345/85; PULSE 86
== END 2024-01-10 13:56 | disposition home or self-care (01) ==
LOC: OR 09:12
PROVIDERS: ATTEND Urology
DX: N52.01 Erectile dysfunction due to arterial insufficiency (principal); I10 Essential (primary) hypertension; G47.33 Obstructive sleep apnea (adult) (pediatric); I73.9 Peripheral vascular disease, unspecified; J44.9 Chronic obstructive pulmonary disease, unspecified; E66.01 Morbid (severe) obesity due to excess calories; Z68.41 Body mass index [BMI] 40.0-44.9, adult; F17.200 Nicotine dependence, unspecified, uncomplicated; Z79.51 Long term (current) use of inhaled steroids; Z79.899 Other long term (current) drug therapy
CPT/HCPCS: 54405; C1813; J2250; J0330; J1580 ×2; J1100; J2710; J2405; J2003; J3010; J0290; J1885; J2704; J1171; J1805; J1596

== ENCOUNTER 2024-01-26 18:32 | Emergency (ER) | payer OTHER ==
[2024-01-26 18:49] VITALS: BP 132/77; PULSE 105; RESP 20; TEMP 97.7
--- NOTE | 2024-01-26 19:43 | ED ---
Male Urogenital HPI - General Chief complaint: Urogenital Stated complaint: Urogenital Time Seen by Provider: 01/26/24 18:47 Source: patient, family, RN notes reviewed Mode of arrival: ambulatory Limitations: no limitations - History of Present Illness Initial comments: This is a 48-year-old male presenting with issues with his x 2 days. Patient states inflation on the left side extending further than the right common relation and poking pain (8/10). Patient endorses awkwardness with moving last night and increased pain when seated. Patient endorses having his penis pump placed [address] Gomez. Patient states he is [place] at home for pain control. States he is urinating normally. MD Complaint: other Onset/Timin -: days(s) Location: penis Radiation: none Severity scale (1-10): 8 Quality: sharp Consistency: constant Improves with: rest Worsens with: movement recent surgery Reports: swelling - Related Data Home Medications Medication Instructions Recorded Confirmed Chlorthalidone [Hygroton] 25 mg PO DAILY 04/21/16 01/10/24 Ergocalciferol [Vitamin D2 (1250 1,250 mcg PO Q30D 01/24/22 01/10/24 Mcg = 86948 Iu)] amLODIPine [Norvasc] 10 mg PO DAILY 01/24/22 01/10/24 Budesonide/Formoterol Fumarate 1 puff INHALATION BID 09/20/22 01/10/24 [Symbicort 160-4.5 Mcg Inhaler] Cetirizine HCl [Zyrtec] 10 mg PO DAILY 09/20/22 01/10/24 Fluticasone Nasal [place] [Flonase 1 dose PO DAILY 09/20/22 01/10/24 Nasal [place]] Albuterol Inhaler [Ventolin Hfa 1 - 2 puff INHALATION Q6H PRN 01/05/24 01/10/24 Inhaler] HYDROcodone/APAP 7.5-325MG [[place] 1 tab PO Q6H PRN 01/05/24 01/10/24 7.5-325] Previous Rx's Medication Instructions Recorded Ibuprofen [Motrin] 800 mg PO Q8H PRN #30 tab 01/26/24 Allergies Allergy/AdvReac Type Severity Reaction Status Date / Time No Known Allergies Allergy Verified 11/29/24 18:44 Review of Systems ROS Statement: Those systems with pertinent positive or pertinent negative responses have been documented in the HPI. ROS Other: All systems not noted in ROS Statement are negative. Past Medical History Past Medical History: COPD, Hypertension, Sleep Apnea/CPAP/BIPAP Additional Past Medical History / Comment(s): uses CPAP History of Any Multi-Drug Resistant Organisms: None Reported Past Surgical History: Orthopedic Surgery Additional Past Surgical History / Comment(s): left ankle repair 2021, penis pump placed Past Anesthesia/Blood Transfusion Reactions: No Reported Reaction Additional Past Anesthesia/Blood Transfusion Reaction / Comment(s): no blood transfusion, colonoscopy Past Psychological History: No Psychological Hx Reported Smoking Status: Current every day smoker Past Alcohol Use History: None Reported Past Drug Use History: None Reported - Past Family History Mother Family Medical History: Coronary Artery Disease (CAD) Additional Family Medical History / Comment(s): cardia stent Father Family Medical History: Cancer Additional Family Medical History / Comment(s): of colon cancer in his 60's General Exam Limitations: no limitations General appearance: alert, in no apparent distress Head exam: Present: atraumatic, normocephalic, normal inspection Eye exam: Present: normal appearance, PERRL, EOMI. Absent: scleral icterus, conjunctival injection, periorbital swelling ENT exam: Present: normal exam, mucous membranes moist Neck exam: Present: normal inspection. Absent: tenderness, meningismus, lymphadenopathy Respiratory exam: Present: normal lung sounds bilaterally. Absent: respiratory distress, wheezes, rales, rhonchi, stridor Cardiovascular Exam: Present: regular rate, normal rhythm, normal heart sounds. Absent: systolic murmur, diastolic murmur, rubs, gallop, clicks GI/Abdominal exam: Present: soft, normal bowel sounds. Absent: distended, tenderness, guarding, rebound, rigid exam: Present: other (Bilateral penile wounds uninflated with the left extending further towards end of his penis causing curvature to the right. His erythema, edema, open wound, urethral discharge.) Extremities exam: Present: normal inspection, full ROM, normal capillary refill. Absent: tenderness, pedal edema, joint swelling, calf tenderness Back exam: Present: normal inspection Neurological exam: Present: alert, oriented X3, CN II-XII intact Psychiatric exam: Present: normal affect, normal mood Skin exam: Present: warm, dry, intact, normal color. Absent: rash Course Vital Signs 01/26/24 18:44 Temperature 97.7 F Pulse Rate 105 H Respiratory 20 Rate Blood Pressure 132/77 O2 Sat by Pulse 96 Oximetry Medical Decision Making - Medical Decision Making Was pt. sent in by a medical professional or institution (KIKO Villalpando, AVIATION SAFETY INSPECTOR, urgent care, hospital, or correction...) When possible be specific @ -No Did you speak to anyone other than the patient for history (EMS, parent, family, police, friend...)? What history was obtained from this source @ -No Did you review nursing and triage notes (agree or disagree)? Why? @ -I reviewed and agree with nursing and triage notes Were old charts reviewed (outside hosp., previous admission, EMS record, old EKG, old radiological studies, urgent care reports/EKG's, correction records)? Report findings @ -No old charts were reviewed Differential Diagnosis (chest pain, altered mental status, abdominal pain women, abdominal pain men, vaginal bleeding, weakness, fever, dyspnea, syncope, headache, dizziness, GI bleed, back pain, seizure, CVA, palpatations, mental health, musculoskeletal)? @ -Differential Abdominal Pain Men: Appendicitis, cholecystitis, diverticulosis, ischemic bowel, pancreatitis, hepatitis, UTI, gastroenteritis, AAA, incarcerated hernia, bowel obstruction, constipation, inflammatory bowel, hepatitis, peptic ulcer disease, splenic infarction, perforated viscus, testicular torsion, this is not meant to be an all-inclusive list EKG interpreted by me (3pts min.). @ -Not done X-rays interpreted by me (1pt min.). @ -None done CT interpreted by me (1pt min.). @ -None done U/S interpreted by me (1pt. min.). @ -None done What testing was considered but not performed or refused? (CT, X-rays, U/S, labs)? Why? @ -None What meds were considered but not given or refused? Why? @ -None Did you discuss the management of the patient with other professionals (professionals i.e. KIKO Villalpando, AVIATION SAFETY INSPECTOR, lab, RT, psych nurse, bulb farmworker, support team assoc, teacher, loan officer assistant, cyanide case hardener)? Give summary @ -Spoke to Dr. Gomez who advised pain control and have patient follow-up in the outpatient setting for ongoing care. Was smoking cessation discussed for >3mins.? @ -No Was critical care preformed (if so, how long)? @ -No Were there social determinants of health that impacted care today? How? (Homelessness, low income, unemployed, alcoholism, drug addiction, transportation, low edu. Level, literacy, decrease access to med. care, fci, rehab)? @ -No Was there de-escalation of care discussed even if they declined (Discuss DNR or withdrawal of care, Hospice)? DNR status @ -No What co-morbidities impacted this encounter? (DM, HTN, Smoking, COPD, CAD, Cancer, CVA, ARF, Chemo, Hep., AIDS, mental health diagnosis, sleep apnea, morbid obesity)? @ -None Was patient admitted / discharged? Hospital course, mention meds given and route, prescriptions, significant lab abnormalities, going to OR and other pertinent info. @ -IM Toradol given for pain. Spoke to Dr. Gomez who advised pain control and have patient follow-up in the outpatient setting for ongoing care. Motrin 800 sent to pharmacy. Undiagnosed new problem with uncertain prognosis? @ -No Drug Therapy requiring intensive monitoring for toxicity (Heparin, Nitro, Insulin, Cardizem)? @ -No Were any procedures done? @ -No Diagnosis/symptom? @ -Penis pump malfunction Acute, or Chronic, or Acute on Chronic? @ -Acute Uncomplicated (without systemic symptoms) or Complicated (systemic symptoms)? @ -Uncomplicated Side effects of treatment? @ -No Exacerbation, Progression, or Severe Exacerbation? @ -No Poses a threat to life or bodily function? How? (Chest pain, [place], [place], pneumonia, PE, COPD, DKA, ARF, appy, cholecystitis, CVA, Diverticulitis, Homicidal, Suicidal, threat to staff... and all critical care pts) @ -No Disposition Clinical Impression: Penis pain Disposition: HOME SELF-CARE Condition: Good Prescriptions: Ibuprofen [Motrin] 800 mg PO Q8H PRN #30 tab PRN Reason: Pain Is patient prescribed a controlled substance at d/c from ED?: No Referrals: Dung Torres MD [Primary Care Provider] - 1-2 days Clint Monzon MD [STAFF PHYSICIAN] - 1-2 days Time of Disposition: 19:42
[2024-01-26] MEDS: KETOROLAC 15 MG/ML 1 ML VIAL IM STA (20:09)
== END 2024-01-26 20:10 | disposition home or self-care (01) ==
LOC: EC 18:32
DX: T83.490A Other mechanical complication of implanted penile prosthesis, initial encounter (principal); F17.200 Nicotine dependence, unspecified, uncomplicated
CPT/HCPCS: 99284; 96372; J1885

== ENCOUNTER 2024-08-04 19:30 | Emergency (ER) | payer OTHER | END 2024-08-04 20:37 | disposition left against medical advice (07) | LOC: EC 19:30 | DX: Z53.21 Procedure and treatment not carried out due to patient leaving prior to being seen by health care provider (principal) | CPT/HCPCS: 99499 ==